=== PATIENT | female | born 1950 | race Caucasian/White ===

== ENCOUNTER → 2017-11-19 | Outpatient (CLI) | payer OTHER | LOC: M.RAD 10:00 | DX: Z12.31 Encounter for screening mammogram for malignant neoplasm of breast (principal) ==

== ENCOUNTER → 2017-12-27 | Outpatient (CLI) | payer OTHER | LOC: M.RAD 15:45 | DX: M81.0 Age-related osteoporosis without current pathological fracture (principal) ==

== ENCOUNTER → 2018-11-21 | Outpatient (CLI) | payer OTHER | LOC: M.RAD 09:48 | DX: Z12.31 Encounter for screening mammogram for malignant neoplasm of breast (principal) ==

== ENCOUNTER → 2019-11-24 | Outpatient (CLI) | payer MEDICARE | LOC: M.RAD 09:47 | DX: Z12.31 Encounter for screening mammogram for malignant neoplasm of breast (principal) ==

== ENCOUNTER → 2019-11-28 | Outpatient (CLI) | payer MEDICARE | LOC: M.RAD 09:07 | DX: R92.1 Mammographic calcification found on diagnostic imaging of breast (principal) ==

== ENCOUNTER → 2019-11-29 | Outpatient (CLI) | payer MEDICARE ==
[~2019-11-29] MED LIST: ASPIR 8181 M1 PO; ELEMENTAL CALC600 MG PO; EVISTA PO; FISH OIL 1,0001 EAC9 PO; SIMVASTATIN40 MG PO; TRAMADOL 50 MG50 MG PO; VITAMIN D34000 UNIT PO
--- NOTE | 2019-12-05 17:07 | PATH ---
[address] [address] PATHOLOGY RPT PROCEDURE Name: GERALDINE PIZARRO [place] Room: [facility]#: [id number] Admission: 11/29/19 Date of : 46 Discharge: Report #: [id number] Path Case #: [id number] [facility] Accession Number: [id number] . 01 Material submitted: . PART A: breast - LEFT BREAST CALCIFICATIONS. Modifiers: left PART B: breast - LEFT BREAST TISSUE CALCIFICATIONS, LATERAL. Modifiers: left, lateral . 01 Clinical history: . A. None provided B. Left breast stereotactic biopsy for lateral calcifications . 02 Diagnosis: A. Left breast calcifications: - Benign breast tissue with few luminal calcifications, negative for atypia. - Fragments of benign skin. (SEE COMMENT) . B. 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 - DUCTAL CARCINOMA IN SITU (DCIS), NUCLEAR GRADE II, SOLID, CRIBRIFORM, MICROPAPILLARY AND FOCAL COMEDO TYPES, WITH CALCIFICATIONS. (SEE COMMENT) . (BRENDA:nadine; 12/01/2019) QL 12/01/2019 1233 Local . 02 Comment: Specimen type: Stereotactic biopsy Tumor site: Left breast, lateral (specimen B) Tumor quantitation: Approximately 20% of submitted tissues Histologic type: Ductal adenocarcinoma with prominent lobular features Histologic grade: Intermediate (II/III) Tubules, nuclei and mitoses: 3, 2, 1 LVSI: Not identified Microcalcifications: Identified in association with DCIS and non-neoplastic breast Markers: Breast tumor profile pending Block: B2 . The tumor in specimen B is seen to entirely infiltrate as single cells with prominent "[place] filing" typical of that seen with lobular carcinoma; however, properly-controlled immunohistochemical stains, performed on B3, show the neoplastic cells to be strong E-cadherin positive where they are also highlighted [place] [address] PATHOLOGY RPT PROCEDURE Name: GERALDINE PIZARRO Room: [facility] [place]#: [id number] Admission: 11/29/19 Date of : 46 Discharge: Report #: [id number] Path Case #: [id number] neoplasia which in areas have a histologic appearance similar to lobular neoplasia are also strongly positive for E-cadherin and Keratin KASANDRA. These findings raise the possibility of a lobular carcinoma with aberrant E-cadherin expression. Breast tumor profile studies are pending on B2 and will be the subject of an addendum report. . Specimens A and B reviewed with Dr. Adria Manriquez who agrees with the diagnoses. Daria (acting [facility] Breast Navigator) notified at approximately 1355 on 12/01/2019. . (BRENDA:mmel; 12/01/2019) . 02 Addendum: . Special studies report received from [facility], [address] [place] [address], [address], [place], [address], on case [id number], labeled with their number [id number], dated 12/04/2019. . Breast/Prognostic Marker Analysis . Specimen Site: Lt Breast, tissue calcification lateral Specimen ID #: [id number] . ER (Estrogen Receptor) Present/Positive Percent: 80.00% Analysis: Manual Comments: Staining Intensity: Weak to Moderate. . HI (Progesterone Receptor) Present/Positive Percent: 60.00% Analysis: Manual Comments: Staining Intensity: Weak to Moderate. . HER2 Not Over-Expressed Score: 0 Analysis: Manual . Ki-67 Low Proliferation Percent: 3.00% Analysis: Manual . Time to Fixation (Cold Ischemic Time): 5 minutes Duration of Fixation: Not Provided Type of Fixative: 10% Neutral Buffered Formalin . Comments: [place] [address] PATHOLOGY RPT PROCEDURE Name: GERALDINE PIZARRO [facility] [id number] Admission: 11/29/19 Date of : 46 Discharge: Report #: [id number] Path Case #: [id number] ER/PgR testing at [facility] [employer]. is performed in compliance with the ASCO/CAP Clinical Practice Guidelines. If the result for ER is less than 1% it is reported as Negative; if the ER result is 1-10% it is reported as Low Positive; if the ER result is greater than 10% it is reported as Positive. If the result for PgR is less than 1% it is reported as Negative; if the PgR result is equal to or greater than 1%, it is reported as Positive. . REF: Angeline KH, Anjelica PURDY, et al: Estrogen and Progesterone Receptor Testing in Breast Cancer. ASCO/CAP Guideline Update. DOI 10.5858/arpa.4045-6877-NB. . Whole slide image capture is performed using [employer]) platform. Image analysis, if ordered, is performed using [employer] software. . at [facility]. Dung Hilario MD Pathologist . Methodology The HER2 Receptor protein expression is analyzed using the [employer] HER2 rabbit monoclonal antibody (clone [id number]). This assay is used for diagnostic determination of the HER2 protein over-expression in paraffin embedded, formalin fixed breast cancer tissue on the [employer]. The specimen is processed using a secondary antibody-HRP conjugate detection system. The membrane staining of the tumor is determined either by manual score or image analysis. This antibody is intended for in vitro diagnostic use. The score is reported as 0, 1+, 2+, or 3+. This test is used for clinical purposes. . A rabbit monoclonal antibody (clone SP1) that recognized the Estrogen Receptor is used to perform immunohistochemistry on routinely fixed (formalin) paraffin embedded tissue on the [employer] Benchmark. The specimen is processed using a secondary antibody-HRP conjugate detection system. The percentage of stained tumor nuclei is determined either manually or by image analysis. This test is intended for in vitro diagnostic use. This test is used for clinical purposes. . A rabbit monoclonal antibody (clone 1E2) that recognized the Progesterone Receptor is used to perform immunohistochemistry on routinely fixed (formalin) paraffin embedded tissue on the [employer] Benchmark. The specimen is processed using a secondary antibody-HRP conjugate detection system. The percentage of stained tumor nuclei is determined either manually or by image analysis. This test is intended for in vitro diagnostic use. This test is used for clinical purposes. . A rabbit monoclonal antibody (clone 30-9) that recognized Ki[place] [address] PATHOLOGY RPT PROCEDURE Name: GERALDINE PIZARRO Room: [facility]#: [id number] Admission: 11/29/19 Date of : 46 Discharge: Report #: [id number] Path Case #: [id number] perform immunohistochemistry on routinely fixed (formalin) paraffin embedded tissue on the [employer] Bench[employer]. The specimen is processed using a secondary antibody-HRP conjugate detection system. The percentage of stained tumor nuclei is determined either manually or by image analysis. This test is intended for in vitro diagnostic use. This test is used for clinical purposes. . Intended Use: This antibody is intended for in vitro diagnostic (IVD) use. HER2 (4B5) is a rabbit monoclonal antibody intended for the semi-quantitative detection of HER2 antigen in sections of formalin-fixed, paraffin embedded normal and neoplastic tissue. . This antibody is intended for in vitro diagnostic (IVD) use. Estrogen Receptor (ER) (SP1) is a rabbit monoclonal antibody (IgG) that is intended for the qualitative detection of estrogen receptor (ER) antigen in sections of formalin-fixed, paraffin-embedded tissue. ER is a rabbit monoclonal antibody that recognizes human estrogen receptor alpha. . This antibody is intended for in vitro diagnostic (IVD) use. Progesterone Receptor (HI) (1E2) is a rabbit monoclonal antibody (IgG) that is intended for the qualitative detection of progesterone receptor (HI) antigen in sections of formalin fixed, paraffin embedded tissue. HI is a rabbit monoclonal antibody that recognizes the A and B forms of the human progesterone receptor. . This antibody is intended for in vitro diagnostic (IVD) use. Ki-67 (30-9) is a rabbit monoclonal antibody (IgG) directed against C-terminal portion of Ki-67 antigen. Staining for Ki-67 can be used to aid in assessing the proliferative activity of normal and neoplastic tissue. Ki-67 is a nuclear protein expressed in proliferating cells. During the cell cycle, the Ki-67 antigen is present in the G1, S, G2 and M phase but is absent in the G0 (quiescent phase). . . Disclaimer: This Test was performed by [facility] [employer]. at [address] [place] [address], [address]. . [facility] is a business unit of [facility] [employer]. a wholly-owned subsidiary of [employer]. . This assay has not been validated on decalcified tissues. Results should be interpreted with caution if this specimen was decalcified given the likelihood of false negativity on decalcified specimens. . Any image(s) that accompany this report is/are a customer field representative image(s) only and should not be used [place] [address] PATHOLOGY RPT PROCEDURE Name: GERALDINE PIZARRO Room: [facility]#: [id number] Admission: 11/29/19 Date of : 46 Discharge: Report #: [id number] Path Case #: [id number] . This interpretation is contingent on the specimen and the clinical information received. . For any special tests/stains performed, known positive cells or tissues are tested with each marker and examined to ensure positivity. Positive and negative internal controls, if present, react appropriately. . This analysis is an adjunct to the evaluation of the referring physician and does not represent a final diagnosis. . The immunohistochemistry tests performed at [facility] [employer]. were validated on tissue fixed in 10% neutral buffered formalin. The performance characteristics of the tests performed on tissue processed in other fixatives is not known. . HER2 testing at [facility] [employer] is performed in compliance with the 2018 updated ASCO/CAP Clinical Practice Guideline Focused Update. If the result is EQUIVOCAL (2+), it must be confirmed by an alternative assay such as FISH or Dual PERRY. REF: Romina KINGSLEY, RAJWINDER Dejesus et al: Human Epidermal Growth Factor Receptor 2 Testing in Breast Cancer: ASCO/CAP Clinical Practice Guideline Focused Update. J Clin Oncol 36:9268-5461, 2018. . HER2 and ER/HI ASCO/CAP guidelines require fixation in neutral buffered formalin for a minimum of 6 and a maximum of 72 hours. Fixation times less than 6 hours may not adequately preserve cell proteins. Fixation times longer than 72 hours may cause excess cross-linking of proteins reducing the antigen available for staining. Either scenario can cause reduced staining; hence false negative results are possible and should be considered for these situations if the HER2 IHC score is less than 3+ or ER or HI is negative (no staining or <1% positive). It is recommended that specimens fixed longer than 72 hours with HER2 IHC scores less than 3+ be confirmed by HER2 FISH or Dual PERRY. The time from biopsy/excision to fixation in formalin (cold ischemic time) must be less than 1 hour. Time to fixation (cold ischemic time) greater than 1 hour should be interpreted with caution. HER2 testing, mainly HER2 by FISH, is particularly vulnerable since excessive cold ischemic time results in preferential loss of HER2 probe signals that may lead to false negative results. . SCORE STAINING PATTERN IN TUMOR CELLS INTERPRETATION RESULTS 0 No staining observed or incomplete, faint membrane staining in less than or equal to 10% of tumor cells. Negative 1+ Incomplete, faint membrane staining in greater than 10% of tumor cells. Negative 2+ Weak to moderate complete [place] [address] PATHOLOGY RPT PROCEDURE Name: GERALDINE PIZARRO Room: [facility]#: [id number] Admission: 11/29/19 Date of : 46 Discharge: Report #: [id number] Path Case #: [id number] than 10% of tumor cells. Equivocal* *Must be confirmed by alternative assay (IHC/FISH/Dual PERRY) 3+ Intense, complete membrane staining in greater than 10% of tumor cells. Positive . A complete copy of the report is on file. . Professional and Technical services performed by [facility] at [address], [place] [address], [place] [address]. . (BRENDA:sal 12/05/2019) . [facility] Addendum Electronically Signed by Tristian Sandoval MD, Pathologist . 02 Electronically signed: . Tristian Sandoval MD, Pathologist NPI- [id number] . 01 Gross description: . A. The specimen is received in formalin, labeled "Geraldine Pizarro, left breast stereotactic biopsy". Received are multiple needle cores of fibrofatty tissue measuring 5.2 x 4.3 x 0.7 cm in aggregate dimensions. Also received within the specimen container is a plastic cassette containing multiple cores of fibrofatty tissue measuring 2.8 x 2.8 x 0.8 cm in aggregate dimensions. The suspect tissue is transferred to cassette A1, and the remainder of the specimen is submitted in cassettes A2 through A5. The cold ischemic time is 12 minutes. The total formalin fixation time is 12 hours and 27 minutes. . B. The specimen is received in formalin, labeled "Geraldine Pizarro, left lateral breast calcifications". Received are multiple needle cores of fibrofatty tissue measuring 2.8 x 2.7 x 0.6 cm in aggregate dimensions. Also received within the specimen container is a plastic cassette containing multiple needle cores of fibrofatty tissue measuring 4.2 x 4.0 x 0.8 cm in aggregate dimensions. The suspect tissue is transferred to cassettes B1 through B3, and remainder of the specimen is submitted in cassettes B4 and B5. The cold ischemic time is 5 minutes. The total formalin fixation time is 10 hours and 35 minutes. (CAA; 11/29/2019) QAC/QAC 12/01/2019 1213 Local . 02 Pathologist provided ICD-10: C50.912, D05.12 . 02 [place] [address] PATHOLOGY RPT PROCEDURE Name: GERALDINE PIZARRO Room: [facility]#: [id number] Admission: 11/29/19 Date of : 46 Discharge: Report #: [id number] Path Case #: [id number] CPT . [id number], [id number], [id number], [id number] Specimen Comment: A courtesy copy of this report has been sent to [phone], [phone] Specimen Comment: [phone], Specimen Comment: Report sent to ,DR ALONSO / DR LI Performed at: [address], [place], [place] [address] MD Chris Hernandez MD Phone: [phone] Performed at: 02 [facility] [address], [place], [place] [id number] MD Tristian Sandoval MD Phone: [phone]
== END | disposition home or self-care (01) ==
LOC: M.RAD 08:00
DX: R92.1 Mammographic calcification found on diagnostic imaging of breast (principal); C50.912 Malignant neoplasm of unspecified site of left female breast; Z98.890 Other specified postprocedural states; Z79.899 Other long term (current) drug therapy

== ENCOUNTER → 2019-12-05 | Outpatient (CLI) | payer MEDICARE ==
[~2019-12-05] MED LIST changes: -TRAMADOL 50 MG50 MG PO
[2019-12-05 11:50] LABS: CREATININE 0.9 mg/dL (0.6-1.3)
== END ==
LOC: M.LAB 11:19 → M.MRI 12:30
PROVIDERS: Surgery
DX: C50.912 Malignant neoplasm of unspecified site of left female breast (principal)

== ENCOUNTER → 2019-12-15 | Day surgery (SDC) | payer MEDICARE ==
[~2019-12-15] MED LIST changes: +TRAMADOL 50 MG50 MG PO
[2019-12-15 07:28] LABS: HEMATOCRIT 44.8 % (37.0-47.0); HEMOGLOBIN 15.6 gm/dL (12.0-15.0); MCH 33.6 pg (26.0-34.0); MCHC 34.7 g/dL (28.0-37.0); MCV 96.8 fL (80.0-100.0); RBC 4.63 mil/uL (4.20-5.00); WBC 6.1 thou/uL (4.0-11.0)
[2019-12-15 07:44] LABS: CALCIUM 8.3 mg/dL (8.5-10.1); POTASSIUM 3.8 mmol/L (3.5-5.1)
--- NOTE | 2019-12-15 12:10 | OP ---
[facility] [place] [address] OPERATIVE REPORT Name: MONROE PIZARRO Room: [facility]#: [id number] Admission: 12/15/19 Attend Phys: Roxanna Linda DO Discharge: Date of : 46 Report #: [id number] THIS REPORT FOR: //name// cc: Jimmy Patel Bradley L. DO ~ THIS REPORT FOR: //name// CC: Jimmy Linda DATE OF SERVICE: 12/15/2019 PREOPERATIVE DIAGNOSIS: Left breast cancer. POSTOPERATIVE DIAGNOSIS: Left breast cancer. FINDINGS: Left breast wire localization x 2 and nuclear medicine injection. SURGEON: Roxanna Linda DO COSURGEON: Dallin Chandler, PGY5 LIAISON ENGINEER: None. PROCEDURE PERFORMED: Left breast wire localized lumpectomy, left superficial sentinel lymph node dissection. ANESTHESIA: LMA and local. ESTIMATED BLOOD LOSS: 5 mL. DRAINS: None. SPECIMENS: Left breast lumpectomy and left lateral margin and left sentinel lymph node. COMPLICATIONS: None. CONDITION: Stable. DISPOSITION: PACU to home. HISTORY OF PRESENT ILLNESS: The patient is a very pleasant 69-year-old female who presented to my office with a change in her mammogram. She had undergone a left breast stereotactic-guided biopsy, which did return with findings of a left breast cancer. She was seen by Oncology and underwent an MRI. After completion [place] [address] OPERATIVE REPORT Name: MONROE PIZARRO Room: [facility].#: [id number] Admission: 12/15/19 Attend Phys: Roxanna Linda DO Discharge: Date of : 46 Report #: [id number] of all of her workup, it was decided to move forward with a wire localized lumpectomy and a sentinel lymph node dissection. Risks discussed included bleeding, infection, pain, scar formation, deformation of the breast, need for further surgery, injury to nerve, artery or vein causing chronic numbness, pain or swelling, and risks of general anesthesia. The patient understood these risks and elected to proceed. DESCRIPTION OF PROCEDURE: The patient initially presented to preop and was taken to Radiology where she underwent a left breast wire localization x 2 and a left breast nuclear medicine injection. She then returned to [facility] where she underwent informed consent. She was then taken to the operating room where she was laid supine on the operating room table. SCDs were placed on bilateral lower extremities. Ancef was given in the perioperative period. General LMA anesthesia was induced by Anesthesia without difficulty. The left breast and axilla were prepped and draped in standard sterile fashion. Timeout was performed to verify patient and procedure. A 5 mL of Lymphazurin blue dye were injected in the periareolar area. The tips of our wires were then palpated and were marked. An incision was marked out on the lateral aspect of the left breast. Planned incision was injected with 10 mL of 0.5% Marcaine. Incision was made with a #15 blade. Cautery was used for hemostasis. Then, using the wires for guidance, a lumpectomy specimen was formed. The lumpectomy was marked in the superior and lateral direction and was placed in a TransPak container and taken to mammography. I did have a bit of concerned that we were close to the lateral margin while the specimen was in Radiology. We did also include lateral margin. There was hardly any tissue left at the lateral aspect. This was marked in the superior and lateral direction, was handed off for permanent pathology. Depth of the dissection of the lumpectomy specimen itself was the pectoralis fascia. The radiologist did return a phone call this point and indicated that we had a good specimen with wires and clip intact. The lumpectomy cavity was gently packed with a moistened Ray-Ja and we turned our attention to the sentinel lymph node dissection. Neoprobe was brought onto the field and the nipple was interrogated. Highest uptake was approximately 10,900. Neoprobe was then used to interrogate the axilla and we had an uptake of approximately 350. This area was marked. A 10 mL of 0.5% Marcaine were again injected in our planned incision. Incision was made with #15 blade. Cautery was used for hemostasis. Cautery was then used to dissect down through the subcutaneous tissue. Weitlaner retractor was then placed. Then, using the Neoprobe for guidance, we gently dissected down into the axillary tissue. We were actually quite superficial when a very clear blue lymphatic was identified and was traced to a blue lymph node. Uptake on the Neoprobe and this area was 875. The blue lymph node was gently elevated using an Allis clamp and was completely dissected free from the surrounding tissue using cautery. This was then handed off as our left superficial sentinel lymph node. It was sent for permanent pathology. Both wounds were copiously irrigated until clear. Hemostasis was assured. FloSeal was introduced into both cavities. Both cavities were then closed in a layered fashion using deep and superficial [address] [address] OPERATIVE REPORT Name: MONROE PIZARRO Room: [facility]#: [id number] Admission: 12/15/19 Attend Phys: Roxanna Linda DO Discharge: Date of : 46 Report #: [id number] stitches of 3-0 Vicryl in inverted interrupted fashion. Skin wounds were closed with running 4-0 Monocryl. A total of 30 mL of 0.5% Marcaine were used to anesthetize the wounds. Wounds were then cleansed and covered with Mastisol, Steri-Strips, 4 x 4's, and a Tegaderm. The patient was then allowed to awaken from anesthesia, was extubated and transported to the recovery room with no further difficulties. Counts were correct x 2 at the conclusion of the case. <ELECTRONICALLY SIGNED> By: Roxanna Linda DO 12/15/19 1210 1137 1201Csharri Linda DO /nt
--- NOTE | 2019-12-22 12:20 | EKG ---
[place] [address] ELECTROCARDIOGRAM REPORT Name: MONROE PIZARRO [place] Room: [facility]#: [id number] Admission: 12/15/19 Attend Phys: Roxanna Linda, Discharge: Date of : 46 Date of Service: 12/15/1947 Report #: [id number] THIS REPORT FOR: //name// [facility] Test Date: 2019-12-15 Test Time: 07:45:13 Pat Name: MONROE PIZARRO Department: Room: Gender: Stitcher Feeder: : 1950 Requested By: Roxanna Linda Order Number: [id number] Reading MD: Travis Berumen Measurements Intervals Leiter Rate: 74 P: 46 RI: 105 QRS: 62 QRSD: 107 T: -85 QT: 405 QTc: 450 Interpretive Statements Sinus rhythm Short RI interval Abnormal R-wave progression, early transition Abnrm T, consider ischemia or LV strain, anterolateral lds No previous ECG available for comparison Electronically Signed On 12-15-2019 11:11:02 CDT by Travis Berumen [email or web address] <ELECTRONICALLY SIGNED> By: Travis Berumen MD, FACC 12/15/19 1111 0745 0745 Travis Berumen MD, [facility] /EPI
--- NOTE | 2019-12-22 13:08 | PATH ---
[address] [address] PATHOLOGY RPT PROCEDURE Name: GERALDINE PIZARRO Room: [facility]#: [id number] Admission: 12/15/19 Date of : 46 Discharge: Report #: [id number] Path Case #: [id number] LCA Accession Number: [id number] . 01 Material submitted: . PART A: breast - LEFT BREAST MASS, STITCH WILKINSON SHORT SUPERIOR AND LONG LATERAL. Modifiers: left PART B: breast - LEFT LATERAL MARGIN, STITCH WILKINSON SHORT SUPERIOR AND LONG LATERAL. Modifiers: left, lateral PART C: lymph node - LEFT SENTINEL LYMPH NODE. Modifiers: left . 01 Clinical history: . Left breast ductal carcinoma in situ. . 02 Diagnosis: A. Portion of breast, "left breast mass, stitch wilkinson short superior and long lateral, lumpectomy": - MULTIPLE MINUTE FOCI OF INFILTRATING DUCTAL CARCINOMA WITH LOBULAR FEATURES GRADE 2 MEASURING 3 MM IN GREATEST DIMENSION INVOLVING THE POSTERIOR BLACK INKED MARGIN. BLOCK A6. - IN SITU DUCTAL CARCINOMA INTERMEDIATE GRADE LESS THAN A MM FROM THE POSTERIOR AND SUPERIOR MARGINS FOCALLY. 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 - See comment. . B. Portion of breast, "left lateral margin, stitch wilkinson short superior and long lateral": - Fibroadepose tissue. - There is no evidence of malignancy and all surgical resection margins are free. . C. Lymph node, "left sentinel lymph node": - Negative for malignancy by histology and immunohistochemistry. - Immunoperoxidase stain: AE1/AE3 is negative. (SHA:nadine:terence; 12/18/2019) . . SURGICAL PATHOLOGY CANCER CASE SUMMARY Protocol posting date: October 2019 . INVASIVE CARCINOMA OF THE BREAST: Resection Procedure ___ Excision (less than total mastectomy) Specimen Laterality ___ Left + Tumor Site + ___ Not specified Tumor Size ___ Greatest dimension of largest invasive focus >1 mm: 3 [place] [address] PATHOLOGY RPT PROCEDURE Name: GERALDINE PIZARRO Room: [facility]#: [id number] Admission: 12/15/19 Date of : 46 Discharge: Report #: [id number] Path Case #: [id number] Histologic Type ___ Invasive carcinoma of no special type (ductal) with lobular features Histologic Grade (Lewis Histologic Score) Glandular (Acinar)/Tubular Differentiation ___ Score 3 (<10% of tumor area forming glandular/tubular structures) Nuclear Pleomorphism ___ Score 2 (cells larger than normal with open vesicular nuclei, visible nucleoli, and moderate variability in both size and shape) Mitotic Rate ___ Score 1 Overall Grade ___ Grade 2 (scores of 6 or 7) + Tumor Focality + ___ minute multiple foci of invasive carcinoma Ductal Carcinoma In Situ (DCIS) ___ Present + ___ Negative for extensive intraductal component (EIC) + Size (Extent) of DCIS 2-3 mm + Estimated size (extent) of DCIS + Number of blocks with DCIS: 10 + Number of blocks examined: 25 + Architectural Patterns + ___ Cribriform + ___ Micropapillary + ___ Solid + Nuclear Grade + ___ Grade II (intermediate) + Necrosis + ___ Not identified + Lobular Carcinoma In Situ (LCIS) + ___ Present Tumor Extension Skin ___ Skin is not present Skeletal Muscle ___ No skeletal muscle is present Margins Invasive Carcinoma Margins ___ Positive for invasive carcinoma ___ Posterior + Extent (specify): 3 mm DCIS Margins ___ Uninvolved by DCIS . Distance from closest margins ___ less than 1mm. . Specify [place] [address] PATHOLOGY RPT PROCEDURE Name: GERALDINE PIZARRO Room: [facility]#: [id number] Admission: 12/15/19 Date of : 46 Discharge: Report #: [id number] Path Case #: [id number] Regional Lymph Nodes ___ Uninvolved by tumor cells Total Number of Lymph Nodes Examined: 1 Number of [place] Nodes Examined: 1 Treatment Effect in the Breast ___ No known presurgical therapy Treatment Effect in the Lymph Nodes ___ Not applicable + Lymphovascular Invasion + ___ Not identified + Dermal Lymphovascular Invasion + ___ No skin present . Pathologic Stage Classification (pTNM, AJCC 8th Edition) Primary Tumor (pT) ___ pT1a: Tumor >1 mm but < or = 5 mm in greatest dimension Regional Lymph Nodes Modifier ___ (sn): [place] node evaluated. Regional Lymph Nodes (pN) ___ pN0: No regional lymph node metastasis identified or ITCs only Distant Metastasis (pM) ___ Not applicable + Ancillary Studies + ___ Breast Biomarker Testing Performed on Previous Biopsy + Testing Performed on Case Number: Full report is available in previous biopsy [id number] + Estrogen Receptor (ER) + ___ Positive (greater than 10% of cells demonstrate nuclear positivity) 80% + Progesterone Receptor (PgR) + ___ Positive 60% + HER2 (by immunohistochemistry) + ___ Negative (Score 0) + ___ Ki-67 percentage of positive nuclei: 3% [facility] 12/22/2019 1255 Local . 02 Comment: Immunoperoxidase stains AE1/AE3 block A1 and block A6 reveal the infiltrating ductal carcinoma in block A6 at the black inked posterior margin. Addional immunoperoxidase stains performed on blocks A8, A12, A15, A16,A19,A20, A21 reveal minute foci of invasive ductal carcinoma grade 2 There are minute foci of DCIS which is hard to estimate the exact size The largest area is approximately 2-3 mm and represents less than 5% of entire material. It is hard to estimate the exact span of DCIS in material submitted. . Even though the lumpectomy specimen reveals that [place] [address] PATHOLOGY RPT PROCEDURE Name: GERALDINE PIZARRO Room: [facility]#: [id number] Admission: 12/15/19 Date of : 46 Discharge: Report #: [id number] Path Case #: [id number] is present at the posterior margin, and DCIS is close to posterior and superior margin. The additional tissue that was taken in part B shows no evidence of either DCIS or invasive ductal carcinoma. Block A1 - A6 were also reviewed by Dr. Tristian Sandoval. This case was also discussed with Dr. Roxanna Linda on 12/21/2019 at 1pm. (CANDELARIO/db; 12/20/2019) . . 02 Electronically signed: . Caleb Child MD, Pathologist NPI- [id number] . 01 Gross description: . A. Received in formalin labeled "eGraldine Pizarro, left breast mass stitch wilkinson short superior and long lateral" is an oriented breast lumpectomy specimen which weighs 28 g and measures 5.5 cm from superior to inferior, 5.3 cm from medial to lateral, and 2.3 cm from anterior to posterior. The specimen is inked as follows: Superior-red, inferior-blue, anterior-green, posterior-black, lateral-orange, medial-yellow. Two guidewires extend from the anterior aspect of the specimen. The specimen is serially sectioned from superior to inferior into 12 slices. Present within slices 4-11 is a castro-white fibrous area possibly consistent with tumor/biopsy site measuring 3.6 x 1.5 x 1.2 cm. This area is located to the margins as follows: 1.2 cm superior, 0.7 cm to inferior, 0.1 cm to anterior, 0.2 cm to posterior, 1.0 cm to medial, and 1.7 cm to lateral. A biopsy site is present within slices 6-8, without a biopsy clip identified. The uninvolved breast parenchyma is yellow-castro and lobulated with 10% dense white fibrous tissue. The specimen is submitted entirely as follows: A1-A2 slice 1, superior margin, perpendicular sections A3 slice 2 A4-A5 slice 3 A6-A7 slice 4 A8-A9 slice 5 A10-A11 slice 6 A12-A13 slice 7 A14-A15 slice 8 A16-A17 slice 9 A18-A19 slice 10 A20 slice 11 A21 slice 12, inferior margin, perpendicular sections The specimen is removed from the patient at 1044 and placed in formalin at 1110 on 12/15/2019. The specimen is removed from formalin at 1850 on 12/17/2019. . B. Received in formalin labeled "Geraldine Pizarro, left lateral margin, stitch wilkinson short superior and long lateral" is an oriented breast lobectomy specimen which weighs 1 g and measures 2.6 cm from superior to inferior, 1.5 cm from anterior to posterior, and 0.8 cm from medial to lateral. The specimen is inked as follows: Superior-red, inferior-blue, [place] [address] PATHOLOGY RPT PROCEDURE Name: GERALDINE PIZARRO Room: [facility]#: [id number] Admission: 12/15/19 Date of : 46 Discharge: Report #: [id number] Path Case #: [id number] lateral-orange, medial-yellow, anterior-green, posterior-black. The specimen is serially sectioned from superior to inferior into 6 slices. The cut surface is yellow-castro and lobulated without a definitive lesion. No biopsy clips are grossly identified. The specimen is submitted entirely as follows: B1 slice 1, superior margin, perpendicular sections B2 slices 2-3 B3 slices 4-5 B4 slice 6, inferior margin, perpendicular sections . C. Received in formalin labeled "Pizarro, Geraldine, left sentinel lymph node" is a castro-brown lymph node measuring 1.0 x 0.6 x 0.5 cm. The specimen is serially sectioned to reveal a grossly unremarkable cut surface. The specimen is submitted entirely in cassette C1. ([facility]; 12/17/2019) [facility] 12/17/2019 1137 Local . 02 Pathologist provided ICD-10: C50.912, N60.32, N64.1, D05.12, D05.02 . 02 CPT . 893227, 581945, 002464, L29132 Specimen Comment: A courtesy copy of this report has been sent to [phone] Specimen Comment: [phone] Specimen Comment: Report sent to / DR ALONSO Performed at: 01 [facility] [address] [facility] [address], [place] [id number] MD Chris Hernandez MD Phone: [phone] Performed at: 02 [facility] [address] [id number] MD Adria Manriquez MD Phone: [phone]
== END | disposition home or self-care (01) ==
LOC: M.SUR 06:59 → EDSTATUS 08:00 → M.SUR 08:00 → M.NUC 08:00
PROVIDERS: Surgery
DX: C50.912 Malignant neoplasm of unspecified site of left female breast (principal); R59.0 Localized enlarged lymph nodes; Z98.890 Other specified postprocedural states; Z79.899 Other long term (current) drug therapy

== ENCOUNTER → 2019-12-28 | Day surgery (SDC) | payer MEDICARE ==
--- NOTE | 2019-12-28 11:26 | OP ---
[address] [address] OPERATIVE REPORT Name: MONROE PIZARRO Room: [facility]#: [id number] Admission: 12/28/19 Attend Phys: Roxanna Linda DO Discharge: Date of : 46 Report #: [id number] THIS REPORT FOR: //name// cc: Jimmy Patel Bradley L. DO ~ THIS REPORT FOR: //name// CC: Jimmy David DICTATED BY: Jhonathan Chandler DO DATE OF SERVICE: 12/28/2019 PREOPERATIVE DIAGNOSIS: Positive superior/posterior margin of the previous specimen. POSTOPERATIVE DIAGNOSIS: Positive superior/posterior margin of the previous specimen. SURGEON: Roxanna Linda DO CO-SURGEON: Dallin Chandler, PGY-5 THREAD MILLING MACHINE SET UP OPERATOR: Omer Nur, PGY-4 OPERATION PERFORMED: 1. Reexcision of superior margin. 2. Placement of clips along the pectoralis fascia to ranjith the posterior margin. ANESTHESIA: General and local. ESTIMATED BLOOD LOSS: 2 mL. SPECIMENS REMOVED: Superior margin. COMMENTS: We took a generous portion of the superior margin, marked the specimen with sutures. A long lateral suture and a short superior suture. Placed clips along the pectoral fascia to ranjith our deep posterior margin, as there was no tissue remaining in the posterior plane. DESCRIPTION OF PROCEDURE: After the appropriate consents were obtained, this patient was taken to the operating room, laid in supine position. She had SCDs placed on bilateral lower extremities[place] [address] OPERATIVE REPORT Name: MONROE PIZARRO Room: [facility]#: [id number] Admission: 12/28/19 Attend Phys: Roxanna Linda DO Discharge: Date of : 46 Report #: [id number] across her lap. She was sedated and intubated by Anesthesia without difficulty. Her arms were placed out at her sides. Her left chest was prepped and draped in standard sterile fashion. A timeout was performed to correctly identify the patient and procedure. She was given perioperative antibiotics at this time. We started by injecting 0.5% Marcaine in her previous incision for local anesthesia. We then used a 15 blade scalpel and then went through her previous incision until we encountered the cavity that was previously dissected. There was a seroma present, but there were no obvious signs of infection. We suctioned free any fluid that was present. We allowed adequate retraction and we were able to visualize our superior border. We took a generous portion of the superior margin using electrocautery down to the pectoralis fascia. This was transected and marked for specimen. The superior margin was marked with a short silk suture and the lateral margin was marked with a long silk suture. This was passed off as specimen to be sent to pathology for further review. There were no obvious fat planes along the deep posterior margin, so we elected to place clips along the pectoralis fascia. We placed 3 clips along the fascia by tenting up the fascia using pickups and then placed 3 small clips in this region. We irrigated copiously and our clips remained in place and we suctioned free any fluid that was present. We closed the cavity using a 3-0 Vicryl stitch in a simple interrupted and inverted fashion. We then closed the skin using a 4-0 Monocryl stitch in a running subcuticular fashion. We did inject 0.5% Marcaine along the fascia prior to closing as well as in the subcutaneous tissue and the skin. The incision was cleaned and dried adequately and we placed Mastisol, Steri-Strips, a sterile gauze, and Tegaderm OpSite over this. The counts were correct x 2 at the end of procedure. Dr. Linda was present for the entirety of the procedure. The patient was then awakened and allowed to be extubated in the OR without difficulty. She will be transported to PACU for further recovery and likely discharge home later today. <ELECTRONICALLY SIGNED> By: Roxanna Linda DO 12/28/19 1126 0955 1032Csharri Linda DO /nt
--- NOTE | 2020-01-02 14:07 | PATH ---
[address] [address] PATHOLOGY RPT PROCEDURE Name: GERALDINE PIZARRO Room: [facility].#: [id number] Admission: 12/28/19 Date of : 46 Discharge: Report #: [id number] Path Case #: [id number] LCA Accession Number: [id number] . 01 Material submitted: . breast - SUPERIOR MARGIN LEFT BREAST, LONG SUTURE LATERAL, SHORT SUTURE SUPERIOR. Modifiers: left, superior . 01 Clinical history: . Invasive ductal carcinoma left breast . 02 Diagnosis: Superior margin left breast: - Breast tissue with scattered luminal calcifications and changes of recent surgery and no residual malignancy or atypia. (See comment) . (BRENDA:nadine; 01/02/2020) QLM 01/02/2020 1150 Local . 02 Comment: Properly-controlled keratin KASANDRA immunohistochemical stains performed on A1 and A8 as well as keratin AE1/AE3 IHC performed on A5, all show no evidence of residual malignancy. . Recent left breast lumpectomy performed around 12/15/2019 showed foci of infiltrating ductal carcinoma with lobular features, Grade II, with involvement of a posterior margin as well as DCIS, intermediate grade close to posterior and superior margins ([id number], A). . Gross and microscopic findings discussed with Dr. Linda at approximately 11:50 on 01/02/2020. . (BRENDA:mml/pit; 01/02/2020) . 02 Electronically signed: . Tristian Sandoval MD, Pathologist NPI- [id number] . 01 Gross description: . The specimen is received in formalin, labeled "Geraldine Pizarro, superior margin left breast, long suture lateral, short superior". Received is a 4 g lumpectomy specimen measuring 3.3 cm from superior to inferior, 2.8 cm from medial to lateral, and 1.4 cm from anterior to posterior. The posterior surface of the specimen (based on orientation provided), shows a hemorrhagic change typical of recent prior surgery. The specimen is inked as follows: Superior-blue, inferior-green, lateral-red, medial-yellow, anterior-black, posterior-orange. The [place] [address] PATHOLOGY RPT PROCEDURE Name: PIZARROGERALDINE Vernon Room: [facility]#: [id number] Admission: 12/28/19 Date of : 46 Discharge: Report #: [id number] Path Case #: [id number] to inferior aspects into 11 slices. Sectioning reveals yellow-castro fibrofatty cut surfaces with no grossly distinct nodules or lesions. The specimen is submitted entirely from superior to inferior aspects in cassettes A1 through A8. The cold ischemic time is 2 minutes. The total formalin fixation time is 36 hours and 9 minutes. Gross photographs are taken. (CAA; 12/29/2019) QAC/QAC 01/02/2020 1202 Local . 02 Pathologist provided ICD-10: C50.912 . 02 CPT . 129742, R90051, Z58393 Specimen Comment: A courtesy copy of this report has been sent to [phone] Specimen Comment: [phone], Specimen Comment: Report sent to / DR ALONSO / DR ALANIZ Performed at: [address], [place] [id number] MD Chris Hernandez MD Phone: [phone] Performed at: 02 [facility] [address], [place], [place] [id number] MD Tristian Sandoval MD Phone: [phone]
== END | disposition home or self-care (01) ==
LOC: M.SUR 06:49
DX: R92.1 Mammographic calcification found on diagnostic imaging of breast (principal); E78.00 Pure hypercholesterolemia, unspecified; M81.0 Age-related osteoporosis without current pathological fracture; F17.210 Nicotine dependence, cigarettes, uncomplicated; Z98.890 Other specified postprocedural states; Z79.899 Other long term (current) drug therapy; Z85.3 Personal history of malignant neoplasm of breast

== ENCOUNTER → 2020-03-19 | Outpatient (CLI) | payer MEDICARE | LOC: M.LAB 15:17 | PROVIDERS: ATTEND Internal Medicine Gastroenterology | DX: Z01.812 Encounter for preprocedural laboratory examination (principal); Z11.59 Encounter for screening for other viral diseases; Z86.010 Personal history of colon polyps ==

== ENCOUNTER → 2020-07-11 | Outpatient (CLI) | payer MEDICARE | LOC: M.RAD 10:10 | PROVIDERS: ATTEND Surgery | DX: Z98.890 Other specified postprocedural states (principal); N64.89 Other specified disorders of breast ==

== ENCOUNTER → 2020-11-26 | Outpatient (CLI) | payer MEDICARE | LOC: M.RAD 09:59 | PROVIDERS: ATTEND Surgery | DX: C50.912 Malignant neoplasm of unspecified site of left female breast (principal); R92.2 Inconclusive mammogram; Z98.890 Other specified postprocedural states ==

== ENCOUNTER → 2020-11-29 | Outpatient (CLI) | payer MEDICARE | LOC: M.RAD 10:11 | PROVIDERS: ATTEND Internal Medicine Hematology & Oncology | DX: M85.88 Other specified disorders of bone density and structure, other site (principal); C50.512 Malignant neoplasm of lower-outer quadrant of left female breast; Z17.0 Estrogen receptor positive status [ER+]; Z79.811 Long term (current) use of aromatase inhibitors ==

== ENCOUNTER 2020-12-26 06:06 | Inpatient (IN) | payer MEDICARE ==
[~2020-12-26] VITALS: Ht 152.4 cm; Wt 88.9 kg
--- NOTE | ~2020-12-26 | OP ---
[facility] [address] [place] [address] OPERATIVE REPORT Name: MONROE PIZARRO Room: [address] IN M.R.#: [id number] Admission: 12/26/20 Attend Phys: Aria Macedo MD Discharge: Date of : 46 Report #: [id number] THIS REPORT FOR: cc: Jimmy Patel Bradley L. DO Patterson,Rei Carlin MD ~ DATE OF SERVICE: 12/26/2020 PREOPERATIVE DIAGNOSIS: Cecal volvulus. POSTOPERATIVE DIAGNOSIS: Cecal volvulus. OPERATION: Right hemicolectomy. SURGEON: Rei Acuña MD ANESTHESIA: General. ESTIMATED BLOOD LOSS: Minimal. SPECIMEN: Cecum. DESCRIPTION OF PROCEDURE: After informed consent was obtained, the patient was brought to the operating room and placed supine. SCDs were placed and working, preoperative antibiotics were administered, general anesthesia was induced. A Stern catheter was placed. The abdomen was prepped and draped in a usual sterile fashion. Midline laparotomy incision was made around the umbilicus measuring approximately 8 cm. Cautery dissection was made down to the fascia and the fascia was incised. Abdominal exploration was undertaken. The small bowel appeared normal. There was an area of dilated colon just deep to the incision. I was able to palpate this and it was a dilated portion of the cecum that had volvulized around itself consistent with the CT findings. I was able to detorse the area and then exteriorize it through the incision. There was immediately distal to this area that had volvulized healthy ascending colon, although there were areas of diverticula. I therefore elected to resect this section as she had a very redundant cecum and this would likely happen again. Therefore, the right colon was transected at the level of the mid ascending colon. This was done with a JUMANA blue load stapler. The white line of Toldt was incised and the right colon was mobilized medially. The small bowel was then grasped and the terminal ileum was identified. The terminal ileum was transected at approximately 5 cm from the cecum. The mesentery between the two staple lines was ligated using the LigaSure device. There was excellent hemostasis. The cecum was [place] [address] OPERATIVE REPORT Name: MONROE PIZARRO Room: [address] IN [facility].#: [id number] Admission: 12/26/20 Attend Phys: Aria Macedo MD Discharge: Date of : 46 Report #: [id number] The colon had been mobilized at this point and ileocolostomy was then performed. This was ybpm-je-cmjn. They were brought into apposition and stapled with a JUMANA blue load 75 stapler. The common enterocolostomy was then stapled with a JUMANA blue load stapler as well. The anastomosis was widely patent. The mesentery between the two was closed with a single 3-0 Vicryl suture. The anastomosis was placed back into the abdomen. The fascia was then closed with a running 0 PDS suture. The skin was closed with 4-0 Monocryl. Incisions were dressed with Steri-Strips and sterile gauze. Sterile dressings were applied. COMPLICATIONS: None. DISPOSITION: The patient was taken to recovery in satisfactory condition. By: 1649 1833Jojuan alberto Acuña MD /sharee
[2020-12-26 06:13] VITALS: BP 133/40
[2020-12-26 06:45] LABS: ABSOLUTE BASOPHILS 0.1 thou/uL (0.0-0.2); ABSOLUTE LYMPHOCYTES 1.3 thou/uL (0.8-5.3); ABSOLUTE MONOCYTES 0.7 thou/uL (0.0-1.2); ABSOLUTE NEUTROPHILS 11.1 thou/uL (1.6-8.1); BASOPHILS 0.9 %; EOSINOPHILS 0.3 %; HEMATOCRIT 45.2 % (37.0-47.0); HEMOGLOBIN 15.1 gm/dL (12.0-15.0); LYMPHOCYTES 10.1 %; MCH 33.1 pg (26.0-34.0); MCHC 33.5 g/dL (28.0-37.0); MCV 98.6 fL (80.0-100.0); MONOCYTES 5.3 %; MPV 8.9 fl. (7.2-11.1); NUCLEATED RBCS 0 /100WBC; PLATELET COUNT* 249 thou/uL (150-400); POLYS 83.4 %; RBC 4.58 mil/uL (4.20-5.00); RDW-CV 13.8 % (10.5-14.5); WBC 13.3 thou/uL (4.0-11.0)
[2020-12-26] MEDS ORDERED: FISH OIL 1,001000 M3 PO (06:49)
[2020-12-26] MEDS ORDERED: VIT D (06:51)
[2020-12-26] MEDS ORDERED: ADULT ASPIRIN R81 MG PO (06:51)
[2020-12-26] MEDS ORDERED: ARIMIDEX1 MG PO (06:52)
[2020-12-26 06:56] LABS: CALCIUM 8.7 mg/dL (8.5-10.1); POTASSIUM 4.1 mmol/L (3.5-5.1)
[2020-12-26 07:00] LABS: ALBUMIN 3.8 g/dL (3.4-5.0); APTT 23.5 Seconds (25.0-31.3); PROTIME 10.6 Seconds (9.20-11.50); TOTAL BILIRUBIN 0.7 mg/dL (<0.1-1.0); TOTAL PROTEIN 7.1 g/dL (6.4-8.2)
[2020-12-26 07:09] LABS: URINE BLOOD NEGATIVE (Negative); URINE CLARITY CLEAR; URINE COLOR YELLOW; URINE GLUCOSE-RANDOM NEGATIVE (Negative); URINE KETONES 2+ (Negative); URINE LEUKOCYTES-REFLEX NEGATIVE (Negative); URINE NITRITE-REFLEX NEGATIVE (Negative); URINE PROTEIN TRACE (Negative); URINE SPECIFIC GRAVITY 1.025 (1.005-1.030); URINE UROBILINOGEN 0.2 E.U./dl (0.2-1.0)
[2020-12-26 07:10] LABS: ICTOTEST (BILI CONFIRMATORY) Negative (Negative); URINE BILIRUBIN 1+ (Negative)
[2020-12-26 09:52] VITALS: BP 122/86
[2020-12-26 10:00] VITALS: BP 120/46
--- NOTE | 2020-12-26 10:30 | EKG ---
[place] [address] ELECTROCARDIOGRAM REPORT Name: MONROE PIZARRO Vernon Room: [address] ADM IN .R.#: [id number] Admission: 12/26/20 Attend Phys: Aria Macedo MD Discharge: Date of : 46 Date of Service: 12/26/20 0628 Report #: [id number] THIS REPORT FOR: //name// [facility] ED Test Date: 2020-12-26 Test Time: 06:28:06 Pat Name: MONROE PIZARRO Department: Room: [facility] Gender: F Display Mechanic: SEAN : 1950 Requested By: Cassidy Lomeli Order Number: [id number] MD: Ck Myers Measurements Intervals Knapp Rate: 57 P: 140 AL: 108 QRS: 64 QRSD: 87 T: 68 QT: 402 QTc: 392 Interpretive Statements Sinus or ectopic atrial rhythm Short AL interval Probable left atrial enlargement Abnrm T, consider ischemia, anterolateral lds Compared to ECG 12/15/2019 07:45:13 Possible ischemia still present Electronically Signed On 12-26-2020 10:30:27 CDT by Ck Myers [email or web address] <ELECTRONICALLY SIGNED> By: Ck Myers MD, FACC 12/26/20 1030 Ck Myers MD, [facility] /EPI
[2020-12-26 20:30] VITALS: BP 102/45
[2020-12-26 23:40] VITALS: BP 95/51
[2020-12-27 04:31] LABS: HEMATOCRIT 38.1 % (37.0-47.0); MCH 33.1 pg (26.0-34.0); MCHC 33.4 g/dL (28.0-37.0); MCV 99.1 fL (80.0-100.0); MPV 9.4 fl. (7.2-11.1); RBC 3.84 mil/uL (4.20-5.00); RDW-CV 13.6 % (10.5-14.5); WBC 17.5 thou/uL (4.0-11.0)
[2020-12-27 04:44] LABS: HEMOGLOBIN 12.7 gm/dL (12.0-15.0)
[2020-12-27 04:57] LABS: CALCIUM 7.5 mg/dL (8.5-10.1); CREATININE 0.8 mg/dL (0.6-1.3); POTASSIUM 3.7 mmol/L (3.5-5.1)
[2020-12-27 05:04] VITALS: BP 100/59
[2020-12-27 08:00] VITALS: BP 122/72
[2020-12-27 11:45] VITALS: BP 118/53
[2020-12-27 16:00] VITALS: BP 92/51
[2020-12-27 20:00] VITALS: BP 113/64
[2020-12-28 00:13] VITALS: BP 106/63
[2020-12-28 04:08] VITALS: BP 119/61
[2020-12-28 04:10] LABS: HEMATOCRIT 35.2 % (37.0-47.0); HEMOGLOBIN 11.8 gm/dL (12.0-15.0); MCH 33.5 pg (26.0-34.0); MCHC 33.6 g/dL (28.0-37.0); MCV 99.5 fL (80.0-100.0); MPV 9.7 fl. (7.2-11.1); RBC 3.54 mil/uL (4.20-5.00); RDW-CV 14.1 % (10.5-14.5); WBC 7.2 thou/uL (4.0-11.0)
[2020-12-28 04:28] LABS: ALBUMIN 2.5 g/dL (3.4-5.0); CALCIUM 7.4 mg/dL (8.5-10.1); CREATININE 0.8 mg/dL (0.6-1.3); MAGNESIUM 1.8 mg/dL (1.8-2.4); POTASSIUM 3.6 mmol/L (3.5-5.1); TOTAL BILIRUBIN 0.6 mg/dL (<0.1-1.0); TOTAL PROTEIN 5.4 g/dL (6.4-8.2)
[2020-12-28 11:28] VITALS: BP 141/69
[2020-12-28 16:00] VITALS: BP 108/88
[2020-12-28 20:00] VITALS: BP 121/72
[2020-12-29 00:13] VITALS: BP 126/68
[2020-12-29 04:17] LABS: HEMATOCRIT 35.5 % (37.0-47.0); MCH 33.4 pg (26.0-34.0); MCHC 33.9 g/dL (28.0-37.0); MCV 98.5 fL (80.0-100.0); MPV 9.4 fl. (7.2-11.1); RBC 3.6 mil/uL (4.20-5.00); RDW-CV 13.6 % (10.5-14.5); WBC 7.5 thou/uL (4.0-11.0)
[2020-12-29 04:40] LABS: ALBUMIN 2.6 g/dL (3.4-5.0); CALCIUM 8.1 mg/dL (8.5-10.1); CREATININE 0.7 mg/dL (0.6-1.3); MAGNESIUM 1.7 mg/dL (1.8-2.4); POTASSIUM 3.7 mmol/L (3.5-5.1); TOTAL BILIRUBIN 0.7 mg/dL (<0.1-1.0); TOTAL PROTEIN 5.8 g/dL (6.4-8.2)
[2020-12-29 05:03] VITALS: BP 133/76
[2020-12-29 12:10] VITALS: BP 121/79
[2020-12-29 16:15] VITALS: BP 157/70
[2020-12-29 20:00] VITALS: BP 137/66
[2020-12-29 23:43] VITALS: BP 115/65
[2020-12-30 05:11] VITALS: BP 132/74
[2020-12-30 08:00] VITALS: BP 142/78
[2020-12-30 12:39] VITALS: BP 133/68
[2020-12-30 17:08] VITALS: BP 134/79
[2020-12-30 20:02] VITALS: BP 141/81
[2020-12-31 00:31] VITALS: BP 139/88
[2020-12-31 04:38] LABS: HEMATOCRIT 37.4 % (37.0-47.0); HEMOGLOBIN 12.9 gm/dL (12.0-15.0); MCHC 34.4 g/dL (28.0-37.0); MCV 95.9 fL (80.0-100.0); MPV 9.8 fl. (7.2-11.1); RBC 3.9 mil/uL (4.20-5.00); RDW-CV 13.3 % (10.5-14.5); WBC 6.9 thou/uL (4.0-11.0)
[2020-12-31 04:52] LABS: ALBUMIN 2.4 g/dL (3.4-5.0); CALCIUM 8.2 mg/dL (8.5-10.1); CREATININE 0.6 mg/dL (0.6-1.3); MAGNESIUM 1.9 mg/dL (1.8-2.4); POTASSIUM 3.4 mmol/L (3.5-5.1); TOTAL BILIRUBIN 0.7 mg/dL (<0.1-1.0); TOTAL PROTEIN 5.7 g/dL (6.4-8.2)
[2020-12-31 08:00] VITALS: BP 123/60
--- NOTE | 2020-12-31 09:08 | PATH ---
[address] [address] PATHOLOGY RPT PROCEDURE Name: MONROE PIZARRO Room: [address] IN .R.#: [id number] Admission: 12/26/20 Date of : 46 Discharge: Report #: [id number] Path Case #: [id number] LCA Accession Number: [id number] . 01 Material submitted: . cecum - CECUM . 01 Clinical history: . COLECTOMY . CECAL VOLVULUS . 02 Diagnosis: Cecum: - Benign colon/cecum with prominent cecal dilatation in association with mucosal acute inflammation and fresh hemorrhage, - Benign appendix with fibrofatty obliteration of distal lumen. - Benign ileum. - Three benign pericolic lymph nodes. (BRENDA:karen; 12/30/2020) MBR 12/31/2020 0846 Local . 02 Electronically signed: . Tristian Sandoval MD, Pathologist NPI- [id number] . 01 Gross description: . The specimen is received in formalin, labeled "alexander Will" and consists of a right hemicolectomy specimen received as terminal ileum, cecum with appendix and ascending colon. The specimen is remarkable for dilatation of the cecum. The appendix measures 8 x 0.5 cm and is unremarkable. The colon measures 5.5 cm from ileal margin to ileocecal valve and 13 cm from ileocecal valve to distal margin. Proximal and distal margins are inked black. The circumferences are as follows: 3.5 cm at terminal ileum, 5 cm at ileocecal valve, 17 cm at cecum, 13 cm at ascending colon and 8.5 cm at distal margin. The mucosa of the terminal ileum, ileocecal valve and cecum remarkable only for prominent submucosal vessels. The mucosa of the ascending colon is remarkable for submucosal hemorrhage and prominent submucosal vasculature. Multiple soft pink-castro possible lymph nodes ranging from 0.2 to 0.4 cm are identified. Associate Property Manager sections are submitted in 6 cassettes as follows: . A1 Terminal ileal margin, perpendicular section A2 Distal margin, perpendicular section A3 Appendix A4 Ileum and ileocecal valve A5 Cecum A6 Lymph [place] [address] PATHOLOGY RPT PROCEDURE Name: MONROE PIZARRO Room: [address] IN .R.#: [id number] Admission: 12/26/20 Date of : 46 Discharge: Report #: [id number] Path Case #: [id number] . ([facility]; 12/27/2020) MARKELL/MARKELL 12/30/2020 1742 Local . 02 Pathologist provided ICD-10: K52.9, K38.8, K56.2 . 02 CPT . 520722 Specimen Comment: A courtesy copy of this report has been sent to [phone] Specimen Comment: [phone], Specimen Comment: Report sent to ,DR JONES / DR ALONSO Performed at: 01 [facility] [address] [place] [address] [address], [place], [place] [id number] MD Caleb Child MD Phone: [phone] Performed at: 02 [facility] [address] [place], [place] [id number] MD Tristian Sandoval MD Phone: [phone]
[2020-12-31 12:00] VITALS: BP 119/74
[2020-12-31] MEDS ORDERED: HYDROCODON-ACE1 EAC7 PO (13:03)
[2020-12-31 13:29] VITALS: BP 119/74
== END 2020-12-31 14:00 | disposition home health service (06) | DRG 330 ==
LOC: M.ERS 06:06 → M.2W 08:30 → M.TBA-ER 08:30 → M.2W 10:00
PROVIDERS: Internal Medicine; Personal Emergency Response Attendant; ADMIT Family Medicine; ATTEND Family Medicine
PROC: 0DTF0ZZ Resection of Right Large Intestine, Open Approach (ICD-10-PCS; principal; 2020-12-26)
DX: K56.2 Volvulus (principal); E44.1 Mild protein-calorie malnutrition; E78.5 Hyperlipidemia, unspecified; D72.829 Elevated white blood cell count, unspecified; F17.210 Nicotine dependence, cigarettes, uncomplicated; Z20.822 Contact with and (suspected) exposure to COVID-19; Z85.3 Personal history of malignant neoplasm of breast; Z85.43 Personal history of malignant neoplasm of ovary; Z79.82 Long term (current) use of aspirin; Z79.899 Other long term (current) drug therapy; Z68.38 Body mass index [BMI] 38.0-38.9, adult

== ENCOUNTER → 2021-07-30 | Outpatient (CLI) | payer MEDICARE ==
[~2021-07-30] MED LIST changes: +ADULT ASPIRIN R81 MG PO; +ARIMIDEX1 MG PO; +FISH OIL 1,001000 M3 PO; +HYDROCODON-ACE1 EAC7 PO; +VIT D
== END ==
LOC: M.RAD 09:55
PROVIDERS: ATTEND Surgery
DX: C50.912 Malignant neoplasm of unspecified site of left female breast (principal); R92.8 Other abnormal and inconclusive findings on diagnostic imaging of breast